=== PATIENT | female | born 1945 | race Caucasian/White ===

== ENCOUNTER 2020-04-23 12:47 | Inpatient (IN) | payer OTHER, SELFPAY ==
[~2020-04-23] VITALS: Ht 165.1 cm; Wt 81.8 kg
[2020-04-23 12:47] VITALS: BP_SYST 119
[2020-04-23 13:44] LABS: BASOPHILS % (AUTO) 0.2 % (0.0-2.0); HEMATOCRIT 40.3 % (36-48); HEMOGLOBIN 13.5 g/dL (12.0-16.0); LYMPHOCYTES % (AUTO) 13.7 % (20.5-51.5); MEAN CORPUSCULAR HEMOGLOBIN 29 pg (27-31); MEAN CORPUSCULAR HGB CONC 34 % (32-36); MEAN CORPUSCULAR VOLUME 88 fL (79.0-98.0); MONOCYTES # (AUTO) 0.7 K/uL (0.0-1.0); MONOCYTES % (AUTO) 9.4 % (1.7-9.3); NEUTROPHILS # (AUTO) 5.5 K/uL (1.8-7.7); NEUTROPHILS % (AUTO) 76.7 % (40.0-70.0); PLATELET COUNT (AUTO) 132 K/uL (130-430); RED CELL DISTRIBUTION WIDTH 13.6 % (9.0-15.0); WHITE BLOOD COUNT (AUTO) 7.1 K/uL (4.8-10.8)
[2020-04-23] MEDS ORDERED: CANA1TAB4 PO (13:49)
[2020-04-23] MEDS ORDERED: LIP20 PO (13:49)
[2020-04-23] MEDS ORDERED: TRAZ-250 PO (13:49)
[2020-04-23] MEDS ORDERED: BENA40TA8 PO (13:49)
[2020-04-23] MEDS ORDERED: VIT1TABL67 PO (13:49)
[2020-04-23] MEDS ORDERED: ESCI20TA PO (13:49)
[2020-04-23] MEDS ORDERED: LEVO25TA2 PO (13:49)
[2020-04-23] MEDS ORDERED: FURO-150 PO (13:49)
[2020-04-23 14:00] LABS: ANION GAP 8 (5-15); CALCIUM 8.9 mg/dL (8.4-11.0); CHLORIDE 100 mmol/L (98-107); CREATININE 0.83 mg/dL (0.55-1.30); GLUCOSE 128 mg/dL (70-99); POTASSIUM 3.8 mmol/L (3.5-5.1); SODIUM SERUM 132 mmol/L (136-145); UREA NITROGEN, BLOOD 16 mg/dL (8-21)
[2020-04-23 14:05] LABS: PROTHROMBIN TIME 10.3 SECS (9.5-12.5)
[2020-04-23 14:15] LABS: ALANINE AMINOTRANSFERASE 33 U/L (12-78); ALBUMIN 3.3 g/dL (3.4-4.8); ASPARTATE AMINOTRANSFERASE 39 U/L (10-37); FREE T4 (FREE THYROXINE) 1.2 ng/dl (0.8-1.5); LACTATE DEHYDROGENASE 294 U/L (81-234); THYROID STIMULATING HORMONE 1.89 uIu/mL (0.36-3.74); TOTAL BILIRUBIN 1.1 mg/dL (0.0-1.0)
[2020-04-23 14:18] LABS: BILIRUBIN,URINE NEGATIVE (NEGATIVE); CLARITY/URINE CLEAR (CLEAR); COLOR,URINE YELLOW (YELLOW); GLUCOSE,URINE 3+ (NEGATIVE); KETONES,URINE NEGATIVE (NEGATIVE); LEUKOCYTE ESTERASE ,URINE TRACE (NEGATIVE); NITRITE, URINE NEGATIVE (NEGATIVE); PROTEIN URINE 1+ (NEGATIVE); UROBILINOGEN,URINE 0.2 (0.2-1.0)
[2020-04-23 14:23] LABS: C-REACTIVE PROTEIN QUANT 10.7 mg/dL (0-0.5)
[2020-04-23 14:29] LABS: BLOOD, URINE TRACE (NEGATIVE)
[2020-04-23 14:31] LABS: BACTERIA,URINE FEW /HPF (None Seen)
[2020-04-23] MEDS ORDERED: AZITHROMYCIN 500 MG in NS 250 ML IV ONE (14:45)
[2020-04-23] MEDS ORDERED: METOCLOPRAMIDE HCL 10 MG TABLET PO ONE (14:45)
[2020-04-23] MEDS ORDERED: cefTRIAXone 2 GM VIAL IM ONE (14:45)
[2020-04-23] MEDS ORDERED: AZITHROMYCIN 500 MG/VIAL (ZITHROMAX) IV ONE (14:50)
[2020-04-23] MEDS ORDERED: ONDANSETRON 4 MG ODT TAB ONE (14:51)
[2020-04-23] MEDS ORDERED: ACETAMINOPHEN 325 MG TABLET PO ONE (15:00)
[2020-04-23] MEDS ORDERED: ONDANSETRON 4 MG ODT TAB PO ONE (15:00)
[2020-04-23 19:55] VITALS: BP_SYST 101
[2020-04-23 20:00] VITALS: BP_SYST 101
[2020-04-23] MEDS ORDERED: traZODone HCL 50 MG TABLET (DESYREL) PO SCH (23:15)
[2020-04-23] MEDS ORDERED: DEXTROSE 50% JECT 50 ML DISP.SYRIN IVP PRN (23:15)
[2020-04-23] MEDS ORDERED: [UNRECOGNIZED DRUG - OTHER] PO SCH (23:15)
[2020-04-23] MEDS ORDERED: CANAGLIFLOZIN PO SCH (23:15)
[2020-04-23] MEDS ORDERED: METFORMIN HCL PO SCH (23:15)
[2020-04-23] MEDS ORDERED: INSULIN REGULAR, HUMAN 100 UNITS/ML, 10 ML VIAL (humuLIN R) SUBCUT PRN (23:15)
[2020-04-23] MEDS: lisinopriL 20 MG TABLET PO SCH (23:15)
[2020-04-23] MEDS ORDERED: guaiFENesin/DEXTROMETHORPHAN 118 ML PO PRN (23:45)
[2020-04-24 00:15] VITALS: BP_SYST 131
[2020-04-24] MEDS ORDERED: ENOXAPARIN SODIUM 40 MG/0.4 ML SYRINGE SUBCUT ONE ×2 (01:15)
[2020-04-24] MEDS ORDERED: traZODone HCL 50 MG TABLET (DESYREL) PO ONE (01:15)
[2020-04-24 05:51] LABS: BILIRUBIN,URINE NEGATIVE (NEGATIVE); BLOOD, URINE NEGATIVE (NEGATIVE); CLARITY/URINE CLEAR (CLEAR); COLOR,URINE YELLOW (YELLOW); GLUCOSE,URINE 3+ (NEGATIVE); KETONES,URINE NEGATIVE (NEGATIVE); LEUKOCYTE ESTERASE ,URINE NEGATIVE (NEGATIVE); NITRITE, URINE NEGATIVE (NEGATIVE); PROTEIN URINE 1+ (NEGATIVE)
[2020-04-24 05:52] LABS: BACTERIA,URINE FEW /HPF (None Seen); RBC,URINE 0-3 /HPF (0-3); WBC,URINE 0-3 /HPF (0-3)
[2020-04-24] MEDS: LEVOTHYROXINE SODIUM 0.025 MG TABLET PO SCH (07:15)
[2020-04-24 08:00] LABS: BASOPHILS % (AUTO) 0.3 % (0.0-2.0); EOSINOPHILS % (AUTO) 0.3 % (0.0-4.0); HEMATOCRIT 40.4 % (36-48); HEMOGLOBIN 13.4 g/dL (12.0-16.0); LYMPHOCYTES # (AUTO) 1.6 K/uL (1.0-5.5); MEAN CORPUSCULAR HEMOGLOBIN 29 pg (27-31); MEAN CORPUSCULAR HGB CONC 33 % (32-36); MEAN CORPUSCULAR VOLUME 89 fL (79.0-98.0); MONOCYTES # (AUTO) 0.6 K/uL (0.0-1.0); MONOCYTES % (AUTO) 10.8 % (1.7-9.3); NEUTROPHILS # (AUTO) 3.4 K/uL (1.8-7.7); NEUTROPHILS % (AUTO) 60.6 % (40.0-70.0); PLATELET COUNT (AUTO) 149 K/uL (130-430); RED BLOOD CELL COUNT(AUTO) 4.56 MIL/uL (4.2-6.2); RED CELL DISTRIBUTION WIDTH 13.4 % (9.0-15.0); WHITE BLOOD COUNT (AUTO) 5.6 K/uL (4.8-10.8)
[2020-04-24] MEDS ORDERED: ONDANSETRON HCL 4 MG/2 ML VIAL ONE (08:00)
[2020-04-24 08:08] LABS: ALANINE AMINOTRANSFERASE 34 U/L (12-78); ALBUMIN 2.9 g/dL (3.4-4.8); ANION GAP 11 (5-15); ASPARTATE AMINOTRANSFERASE 34 U/L (10-37); CALCIUM 8.7 mg/dL (8.4-11.0); CHLORIDE 103 mmol/L (98-107); CREATININE 0.76 mg/dL (0.55-1.30); GLUCOSE 104 mg/dL (70-99); POTASSIUM 3.7 mmol/L (3.5-5.1); SODIUM SERUM 138 mmol/L (136-145); TOTAL BILIRUBIN 0.6 mg/dL (0.0-1.0); UREA NITROGEN, BLOOD 15 mg/dL (8-21)
[2020-04-24 08:10] VITALS: BP_SYST 109
[2020-04-24] MEDS: ONDANSETRON HCL 4 MG/2 ML VIAL IVP PRN (08:10)
[2020-04-24 08:35] LABS: CHOLESTEROL 118 mg/dL (<200); HDL CHOLESTEROL 39 mg/dL (>55); LDL CHOLESTEROL 59 mg/dL (<100); TRIGLYCERIDES 157 mg/dL (30-150)
[2020-04-24] MEDS: CITALOPRAM HYDROBROMIDE 20 MG TABLET PO SCH (08:51)
[2020-04-24] MEDS: FUROSEMIDE 20 MG TABLET PO SCH (08:51)
[2020-04-24] MEDS: FAMOTIDINE 20 MG TABLET PO SCH (08:51)
[2020-04-24] MEDS: ATORVASTATIN 20 MG TABLET PO SCH (08:51)
[2020-04-24] MEDS: lisinopriL 20 MG TABLET PO SCH (09:00)
[2020-04-24] MEDS ORDERED: NON-FORMULARY MEDICATION (Vit D3 & K/Berberine Hcl/Hops (Ostera Tablet) 1 EACH) PO SCH (09:00)
[2020-04-24] MEDS ORDERED: traZODone HCL 50 MG TABLET (DESYREL) PO SCH (09:00)
[2020-04-24 11:13] VITALS: BP_SYST 115
[2020-04-24] MEDS ORDERED: IOHEXOL 350 mgI/mL, 150 ML INFUS..BTL IV ONE (13:59)
[2020-04-24] MEDS: AZITHROMYCIN 500 MG in NS 250 ML IV SCH (15:08)
[2020-04-24] MEDS: cefTRIAXone 1 GM in D5W 50 ML IV SCH (16:34)
[2020-04-24 16:54] VITALS: BP_SYST 116
[2020-04-24 20:45] VITALS: BP_SYST 128
[2020-04-24] MEDS: traZODone HCL 50 MG TABLET (DESYREL) PO SCH (21:50)
[2020-04-24] MEDS: ENOXAPARIN SODIUM 40 MG/0.4 ML SYRINGE SUBCUT SCH (21:55)
[2020-04-25 00:18] VITALS: BP_SYST 123
[2020-04-25] MEDS: LEVOTHYROXINE SODIUM 0.025 MG TABLET PO SCH (06:37)
[2020-04-25 06:44] LABS: BASOPHILS % (AUTO) 0.4 % (0.0-2.0); EOSINOPHILS % (AUTO) 0.4 % (0.0-4.0); HEMATOCRIT 38.1 % (36-48); HEMOGLOBIN 12.7 g/dL (12.0-16.0); LYMPHOCYTES # (AUTO) 1.2 K/uL (1.0-5.5); LYMPHOCYTES % (AUTO) 23.7 % (20.5-51.5); MEAN CORPUSCULAR HEMOGLOBIN 29 pg (27-31); MEAN CORPUSCULAR HGB CONC 33 % (32-36); MEAN CORPUSCULAR VOLUME 88 fL (79.0-98.0); MONOCYTES # (AUTO) 0.7 K/uL (0.0-1.0); MONOCYTES % (AUTO) 13.6 % (1.7-9.3); NEUTROPHILS # (AUTO) 3.2 K/uL (1.8-7.7); NEUTROPHILS % (AUTO) 61.9 % (40.0-70.0); PLATELET COUNT (AUTO) 181 K/uL (130-430); RED BLOOD CELL COUNT(AUTO) 4.36 MIL/uL (4.2-6.2); RED CELL DISTRIBUTION WIDTH 13.4 % (9.0-15.0); WHITE BLOOD COUNT (AUTO) 5.2 K/uL (4.8-10.8)
[2020-04-25 07:35] VITALS: BP_SYST 125
[2020-04-25 07:53] LABS: ALANINE AMINOTRANSFERASE 32 U/L (12-78); ALBUMIN 2.8 g/dL (3.4-4.8); ANION GAP 9 (5-15); ASPARTATE AMINOTRANSFERASE 30 U/L (10-37); CALCIUM 8.6 mg/dL (8.4-11.0); CHLORIDE 104 mmol/L (98-107); CREATININE 0.73 mg/dL (0.55-1.30); GLUCOSE 106 mg/dL (70-99); POTASSIUM 3.9 mmol/L (3.5-5.1); SODIUM SERUM 138 mmol/L (136-145); TOTAL BILIRUBIN 0.7 mg/dL (0.0-1.0); UREA NITROGEN, BLOOD 14 mg/dL (8-21)
[2020-04-25] MEDS: lisinopriL 20 MG TABLET PO SCH (09:48)
[2020-04-25] MEDS: FAMOTIDINE 20 MG TABLET PO SCH (09:51)
[2020-04-25] MEDS: FUROSEMIDE 20 MG TABLET PO SCH (09:51)
[2020-04-25] MEDS: ATORVASTATIN 20 MG TABLET PO SCH (09:51)
[2020-04-25] MEDS: CITALOPRAM HYDROBROMIDE 20 MG TABLET PO SCH (09:51)
[2020-04-25] MEDS: guaiFENesin/DEXTROMETHORPHAN 10 ML UDC PO PRN (09:54)
[2020-04-25] MEDS ORDERED: ONDANSETRON HCL 4 MG/2 ML VIAL ONE (13:32)
[2020-04-25] MEDS: ONDANSETRON HCL 4 MG/2 ML VIAL IVP PRN (13:33)
[2020-04-25] MEDS: AZITHROMYCIN 500 MG in NS 250 ML IV SCH (15:45)
[2020-04-25 16:30] VITALS: BP_SYST 122
[2020-04-25] MEDS: cefTRIAXone 1 GM in D5W 50 ML IV SCH (16:35)
[2020-04-25 16:45] VITALS: BP_SYST 125
[2020-04-25] MEDS ORDERED: BENZOCAINE/MENTHOL 1 EACH LOZENGE MM PRN ×2 (18:45)
[2020-04-25] MEDS ORDERED: ACETAMINOPHEN 325 MG TABLET PO PRN ×2 (18:45)
[2020-04-25] MEDS ORDERED: ACETAMINOPHEN 325 MG TABLET ONE (19:41)
[2020-04-25 20:15] VITALS: BP_SYST 111
[2020-04-25] MEDS: traZODone HCL 50 MG TABLET (DESYREL) PO SCH (20:30)
[2020-04-25] MEDS: ENOXAPARIN SODIUM 40 MG/0.4 ML SYRINGE SUBCUT SCH (20:32)
[2020-04-26 06:00] VITALS: BP_SYST 115
[2020-04-26] MEDS: LEVOTHYROXINE SODIUM 0.025 MG TABLET PO SCH (06:07)
[2020-04-26 06:55] LABS: BASOPHILS % (AUTO) 0.6 % (0.0-2.0); EOSINOPHILS % (AUTO) 0.5 % (0.0-4.0); HEMATOCRIT 38.7 % (36-48); HEMOGLOBIN 13.2 g/dL (12.0-16.0); LYMPHOCYTES # (AUTO) 1.3 K/uL (1.0-5.5); LYMPHOCYTES % (AUTO) 20.4 % (20.5-51.5); MEAN CORPUSCULAR HEMOGLOBIN 29 pg (27-31); MEAN CORPUSCULAR HGB CONC 34 % (32-36); MEAN CORPUSCULAR VOLUME 86 fL (79.0-98.0); MONOCYTES # (AUTO) 0.8 K/uL (0.0-1.0); MONOCYTES % (AUTO) 13.3 % (1.7-9.3); NEUTROPHILS % (AUTO) 65.2 % (40.0-70.0); PLATELET COUNT (AUTO) 202 K/uL (130-430); RED CELL DISTRIBUTION WIDTH 13.6 % (9.0-15.0); WHITE BLOOD COUNT (AUTO) 6.2 K/uL (4.8-10.8)
[2020-04-26 07:33] LABS: ANION GAP 11 (5-15); CALCIUM 8.9 mg/dL (8.4-11.0); CHLORIDE 105 mmol/L (98-107); CREATININE 0.67 mg/dL (0.55-1.30); GLUCOSE 103 mg/dL (70-99); POTASSIUM 3.8 mmol/L (3.5-5.1); SODIUM SERUM 139 mmol/L (136-145); UREA NITROGEN, BLOOD 12 mg/dL (8-21)
[2020-04-26 08:00] VITALS: BP_SYST 118
[2020-04-26 08:13] LABS: ERYTHROCYTE SEDIMENTATION RATE 80 MM/HR (0-20)
[2020-04-26 08:17] LABS: C-REACTIVE PROTEIN QUANT 6.5 mg/dL (0-0.5)
[2020-04-26] MEDS: ATORVASTATIN 20 MG TABLET PO SCH (08:53)
[2020-04-26] MEDS: FUROSEMIDE 20 MG TABLET PO SCH (08:53)
[2020-04-26] MEDS: CITALOPRAM HYDROBROMIDE 20 MG TABLET PO SCH (08:53)
[2020-04-26] MEDS: FAMOTIDINE 20 MG TABLET PO SCH (08:54)
[2020-04-26] MEDS: lisinopriL 20 MG TABLET PO SCH (08:55)
[2020-04-26 12:00] VITALS: BP_SYST 116
[2020-04-26] MEDS: DOXYCYCLINE HYCLATE 100 MG CAPSULE PO SCH ×2 (15:00→21:19)
[2020-04-26 16:00] VITALS: BP_SYST 137
[2020-04-26 20:00] VITALS: BP_SYST 127
[2020-04-26] MEDS: APIXABAN 2.5 MG TABLET PO SCH (21:19)
[2020-04-26] MEDS: ASCORBIC ACID 500 MG TABLET PO SCH (21:19)
[2020-04-26] MEDS: traZODone HCL 50 MG TABLET (DESYREL) PO SCH (21:19)
[2020-04-27] MEDS: LEVOTHYROXINE SODIUM 0.025 MG TABLET PO SCH (06:30)
[2020-04-27 06:33] VITALS: BP_SYST 120
[2020-04-27 07:10] LABS: BASOPHILS % (AUTO) 0.6 % (0.0-2.0); EOSINOPHILS % (AUTO) 0.6 % (0.0-4.0); HEMATOCRIT 38.2 % (36-48); HEMOGLOBIN 13.1 g/dL (12.0-16.0); LYMPHOCYTES # (AUTO) 1.1 K/uL (1.0-5.5); MEAN CORPUSCULAR HEMOGLOBIN 30 pg (27-31); MEAN CORPUSCULAR HGB CONC 34 % (32-36); MEAN CORPUSCULAR VOLUME 87 fL (79.0-98.0); MONOCYTES # (AUTO) 0.9 K/uL (0.0-1.0); MONOCYTES % (AUTO) 14.6 % (1.7-9.3); NEUTROPHILS # (AUTO) 4.2 K/uL (1.8-7.7); NEUTROPHILS % (AUTO) 66.2 % (40.0-70.0); PLATELET COUNT (AUTO) 229 K/uL (130-430); RED CELL DISTRIBUTION WIDTH 13.3 % (9.0-15.0); WHITE BLOOD COUNT (AUTO) 6.3 K/uL (4.8-10.8)
[2020-04-27 07:27] LABS: ANION GAP 9 (5-15); CALCIUM 8.8 mg/dL (8.4-11.0); CHLORIDE 105 mmol/L (98-107); CREATININE 0.56 mg/dL (0.55-1.30); GLUCOSE 96 mg/dL (70-99); SODIUM SERUM 139 mmol/L (136-145); UREA NITROGEN, BLOOD 11 mg/dL (8-21)
[2020-04-27 07:34] LABS: ALANINE AMINOTRANSFERASE 33 U/L (12-78); ALBUMIN 2.7 g/dL (3.4-4.8); ASPARTATE AMINOTRANSFERASE 29 U/L (10-37); LACTATE DEHYDROGENASE 198 U/L (81-234); TOTAL BILIRUBIN 0.9 mg/dL (0.0-1.0)
[2020-04-27 08:00] VITALS: BP_SYST 120
[2020-04-27 08:52] LABS: C-REACTIVE PROTEIN QUANT 7.4 mg/dL (0-0.5)
[2020-04-27] MEDS: FAMOTIDINE 20 MG TABLET PO SCH (09:36)
[2020-04-27] MEDS: CITALOPRAM HYDROBROMIDE 20 MG TABLET PO SCH (09:36)
[2020-04-27] MEDS: ATORVASTATIN 20 MG TABLET PO SCH (09:36)
[2020-04-27] MEDS: FUROSEMIDE 20 MG TABLET PO SCH (09:36)
[2020-04-27] MEDS: lisinopriL 20 MG TABLET PO SCH (09:37)
[2020-04-27] MEDS: DOXYCYCLINE HYCLATE 100 MG CAPSULE PO SCH (09:37)
[2020-04-27] MEDS: ASCORBIC ACID 500 MG TABLET PO SCH (09:38)
[2020-04-27] MEDS: APIXABAN 2.5 MG TABLET PO SCH (09:40)
[2020-04-27] MEDS ORDERED: levoFLOXacin 500 MG TABLET PO SCH (10:00)
[2020-04-27] MEDS: ONDANSETRON HCL 4 MG/2 ML VIAL IVP PRN (12:09)
[2020-04-27] MEDS: guaiFENesin/DEXTROMETHORPHAN 10 ML UDC PO PRN (12:09)
[2020-04-27] MEDS ORDERED: ONDANSETRON HCL 4 MG/2 ML VIAL IVP PRN (12:30)
[2020-04-27 13:19] VITALS: BP_SYST 105
[2020-04-27 16:22] VITALS: BP_SYST 119
[2020-04-27 16:46] VITALS: BP_SYST 119
[2020-04-27] MEDS ORDERED: APIX2.5T PO (17:01)
[2020-04-27] MEDS ORDERED: ASCO500T20 PO (17:05)
[2020-04-27] MEDS ORDERED: MAGN400T10 PO (17:06)
[2020-04-27] MEDS ORDERED: VITD2000 PO (17:06)
[2020-04-27] MEDS ORDERED: ZINC220T4 PO (17:07)
[2020-04-27] MEDS ORDERED: DOXY100C PO (17:08)
== END 2020-04-27 17:39 | disposition home or self-care (01) | DRG 177 ==
LOC: SED 12:47 → STU 15:21
PROVIDERS: ADMIT Internal Medicine; ATTEND Internal Medicine
DX: U07.1 COVID-19 (principal); J12.89 Other viral pneumonia; E03.9 Hypothyroidism, unspecified; E11.9 Type 2 diabetes mellitus without complications; I10 Essential (primary) hypertension; E78.5 Hyperlipidemia, unspecified; F41.9 Anxiety disorder, unspecified; F32.9 Major depressive disorder, single episode, unspecified; E66.9 Obesity, unspecified; Z88.8 Allergy status to other drugs, medicaments and biological substances; Z79.899 Other long term (current) drug therapy; Z68.30 Body mass index [BMI] 30.0-30.9, adult; Z78.9 Other specified health status
CPT/HCPCS: 36415; 36600; 71045; 71275; 76376; 80048; 80053; 80061; 81000-TC; 82550-TC; 82728; 82803-TC; 82962; 83036; 83605; 83615-TC; 83880; 84439; 84443-TC; 84484; 85025; 85379; 85610-TC; 85651-TC; 85730-TC; 86140; 86710; 93005; 93970; 94010; 94760; 96372; 96374; 99285; J0456; J0696; J1650; J2405; J7050; J7060; J8597; Q0162; Q9967; U0003

== ENCOUNTER 2020-07-11 11:13 | Emergency (ER) | payer OTHER ==
[~2020-07-11] VITALS: Ht 165.1 cm; Wt 79.4 kg
[~2020-07-11 11:13] MED LIST: APIX2.5T PO; ASCO500T20 PO; BENA40TA8 PO; DOXY100C PO; ESCI20TA PO; LEVO25TA2 PO; LIP20 PO; MAGN400T10 PO; TRAZ-250 PO; VIT1TABL67 PO; VITD2000 PO; ZINC220T4 PO
[2020-07-11 11:29] VITALS: BP_SYST 160
[2020-07-11 11:53] LABS: BASOPHILS # (AUTO) 0.1 K/uL (0.0-0.2); BASOPHILS % (AUTO) 1.3 % (0.0-2.0); EOSINOPHILS # (AUTO) 0.2 K/uL (0.0-0.4); EOSINOPHILS % (AUTO) 2.5 % (0.0-4.0); HEMATOCRIT 45.3 % (36-48); HEMOGLOBIN 15.6 g/dL (12.0-16.0); LYMPHOCYTES # (AUTO) 1.7 K/uL (1.0-5.5); LYMPHOCYTES % (AUTO) 23.6 % (20.5-51.5); MEAN CORPUSCULAR HEMOGLOBIN 30 pg (27-31); MEAN CORPUSCULAR HGB CONC 34 % (32-36); MEAN CORPUSCULAR VOLUME 86 fL (79.0-98.0); MONOCYTES # (AUTO) 0.5 K/uL (0.0-1.0); MONOCYTES % (AUTO) 6.4 % (1.7-9.3); NEUTROPHILS # (AUTO) 4.7 K/uL (1.8-7.7); NEUTROPHILS % (AUTO) 66.2 % (40.0-70.0); PLATELET COUNT (AUTO) 199 K/uL (130-430); RED BLOOD CELL COUNT(AUTO) 5.27 MIL/uL (4.2-6.2); RED CELL DISTRIBUTION WIDTH 13.9 % (9.0-15.0); WHITE BLOOD COUNT (AUTO) 7.1 K/uL (4.8-10.8)
[2020-07-11 12:00] LABS: ANION GAP 10 (5-15); CALCIUM 10.1 mg/dL (8.4-11.0); CHLORIDE 102 mmol/L (98-107); CREATININE 0.87 mg/dL (0.55-1.30); GLUCOSE 140 mg/dL (70-99); POTASSIUM 3.9 mmol/L (3.5-5.1); SODIUM SERUM 136 mmol/L (136-145); UREA NITROGEN, BLOOD 17 mg/dL (8-21)
[2020-07-11 12:04] LABS: ALANINE AMINOTRANSFERASE 49 U/L (12-78); ALBUMIN 4.4 g/dL (3.4-4.8); ASPARTATE AMINOTRANSFERASE 40 U/L (10-37)
[2020-07-11 13:10] VITALS: BP_SYST 97
== END 2020-07-11 13:10 | disposition home or self-care (01) ==
LOC: SED 11:13
DX: R60.0 Localized edema (principal); E11.9 Type 2 diabetes mellitus without complications; E07.9 Disorder of thyroid, unspecified; Z79.899 Other long term (current) drug therapy; Z88.1 Allergy status to other antibiotic agents
CPT/HCPCS: 36415; 71045; 80053; 83880; 84484; 85025; 93005; 99285

== ENCOUNTER 2021-03-30 13:47 | Emergency (ER) | payer OTHER ==
[~2021-03-30] VITALS: Ht 165.1 cm; Wt 78.9 kg
[2021-03-30 13:47] VITALS: BP_SYST 107
--- NOTE | 2021-03-30 13:47 | NUR ---
BROUGHT BACK TO BED #4 AND TRIAGED. REPORT GIVEN TO KIMBERLEE
[2021-03-30] MEDS ORDERED: ONDANSETRON HCL 4 MG/2 ML VIAL IVP ONE (14:30)
[2021-03-30] MEDS ORDERED: NACL 0.9% 1,000 ML IV ONE ×2 (14:30→17:00)
[2021-03-30] MEDS ORDERED: CANA1TAB4 PO (14:33)
[2021-03-30 14:41] LABS: BASOPHILS # (AUTO) 0.1 K/uL (0.0-0.2); BASOPHILS % (AUTO) 1.2 % (0.0-2.0); EOSINOPHILS # (AUTO) 0.1 K/uL (0.0-0.4); EOSINOPHILS % (AUTO) 0.8 % (0.0-4.0); HEMOGLOBIN 12.8 g/dL (12.0-16.0); LYMPHOCYTES # (AUTO) 2.9 K/uL (1.0-5.5); LYMPHOCYTES % (AUTO) 29.2 % (20.5-51.5); MEAN CORPUSCULAR HEMOGLOBIN 30 pg (27-31); MEAN CORPUSCULAR HGB CONC 35 % (32-36); MEAN CORPUSCULAR VOLUME 85 fL (79.0-98.0); MONOCYTES # (AUTO) 0.8 K/uL (0.0-1.0); MONOCYTES % (AUTO) 7.7 % (1.7-9.3); NEUTROPHILS # (AUTO) 6.2 K/uL (1.8-7.7); NEUTROPHILS % (AUTO) 61.1 % (40.0-70.0); PLATELET COUNT (AUTO) 188 K/uL (130-430); RED BLOOD CELL COUNT(AUTO) 4.35 MIL/uL (4.2-6.2); RED CELL DISTRIBUTION WIDTH 13.6 % (9.0-15.0); WHITE BLOOD COUNT (AUTO) 10.1 K/uL (4.8-10.8)
[2021-03-30 15:06] LABS: PROTHROMBIN TIME 10.4 SECS (9.5-12.5)
[2021-03-30 15:15] LABS: ANION GAP 11 (5-15); CALCIUM 9.2 mg/dL (8.4-11.0); CHLORIDE 104 mmol/L (98-107); CREATININE 0.72 mg/dL (0.55-1.30); GLUCOSE 145 mg/dL (70-99); POTASSIUM 3.4 mmol/L (3.5-5.1); SODIUM SERUM 137 mmol/L (136-145); UREA NITROGEN, BLOOD 25 mg/dL (8-21)
[2021-03-30 15:18] LABS: BILIRUBIN,URINE NEGATIVE (NEGATIVE); CLARITY/URINE CLEAR (CLEAR); COLOR,URINE YELLOW (YELLOW); GLUCOSE,URINE 3+ (NEGATIVE); KETONES,URINE NEGATIVE (NEGATIVE); LEUKOCYTE ESTERASE ,URINE 1+ (NEGATIVE); NITRITE, URINE NEGATIVE (NEGATIVE); PH,URINE 6.5 (5.0-8.0); PROTEIN URINE NEGATIVE (NEGATIVE); UROBILINOGEN,URINE 0.2 (0.2-1.0)
[2021-03-30 15:21] LABS: ALANINE AMINOTRANSFERASE 34 U/L (12-78); ALBUMIN 3.7 g/dL (3.4-4.8); ASPARTATE AMINOTRANSFERASE 22 U/L (10-37); LIPASE 107 U/L (73-393); TOTAL BILIRUBIN 0.8 mg/dL (0.0-1.0)
--- NOTE | 2021-03-30 15:34 | NUR ---
REMAINS IN NSR WAITING RESULTS VSS
[2021-03-30 15:36] LABS: BLOOD, URINE TRACE (NEGATIVE)
[2021-03-30 15:38] LABS: BACTERIA,URINE RARE /HPF (None Seen)
[2021-03-30] MEDS ORDERED: PROC10TA13 PO (16:57)
[2021-03-30] MEDS ORDERED: CIPR500T5 PO (16:57)
[2021-03-30] MEDS ORDERED: ACETAMINOPHEN 325 MG TABLET PO ONE (17:00)
--- NOTE | 2021-03-30 17:58 | NUR ---
Patient given written and verbal discharge instructions and verbalizes understanding. ER MD discussed with patient the results and treatment provided. Patient in stable condition. ID arm band removed. IV catheter removed intact and dressing applied, no active bleeding. Rx of COMPAZINE AND CIPRO given. Patient educated on pain management and to follow up with PMD. Pain Scale 0. Opportunity for questions provided and answered. Medication side effect fact sheet provided.
[2021-03-30 17:59] VITALS: BP_SYST 110
== END 2021-03-30 17:58 | disposition home or self-care (01) ==
LOC: SED 13:47
DX: N39.0 Urinary tract infection, site not specified (principal); E11.9 Type 2 diabetes mellitus without complications; Z88.8 Allergy status to other drugs, medicaments and biological substances; Z79.899 Other long term (current) drug therapy
CPT/HCPCS: 36415; 71045; 74176; 76376; 80053; 81000; 83690; 84484; 85025; 85610; 85730; 87086; 93005; 96361; 96374; 99285; J2405; J7030